=== PATIENT | male | born 1990 | race Caucasian/White ===

== ENCOUNTER 2018-05-04 09:30 | Day surgery (SDC) | payer OTHER ==
[2018-05-04] MEDS ORDERED: LIDOcaine 2% 5ml jelly ONE (09:33)
[2018-05-04] MEDS ORDERED: silver sulfadiazine cream 50gm TP ONE (09:48)
[2018-05-04] MEDS ORDERED: SILV50CR31 TP (14:22)
== END 2018-05-04 10:06 | disposition home or self-care (01) ==
LOC: WOUND CARE 09:30
PROVIDERS: ATTEND Surgery
DX: L98.411 Non-pressure chronic ulcer of buttock limited to breakdown of skin (principal); L97.522 Non-pressure chronic ulcer of other part of left foot with fat layer exposed; L97.421 Non-pressure chronic ulcer of left heel and midfoot limited to breakdown of skin; L97.311 Non-pressure chronic ulcer of right ankle limited to breakdown of skin; T24.232A Burn of second degree of left lower leg, initial encounter; T21.21XA Burn of second degree of chest wall, initial encounter; X08.8XXA Exposure to other specified smoke, fire and flames, initial encounter; Y93.89 Activity, other specified; Y92.89 Other specified places as the place of occurrence of the external cause; Y99.8 Other external cause status
CPT/HCPCS: 97597; A6021; A6206; A6209; A6213; A6223